=== PATIENT | female | born 1965 | race Caucasian/White ===

== ENCOUNTER 2018-05-15 22:18 | Inpatient (IN) | payer SELFPAY ==
[~2018-05-15] VITALS: Ht 152.4 cm; Wt 62.7 kg
--- OUTSIDE RECORDS SUMMARY | 2018-05-15 22:24 | XMS REPORT ---
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 [id number] [place] [address] 61518- 9129 Apr, [facility] [id number] [place] [address] 59128- 2855 Mar, [facility] [id number] [place] [address] 58845- 7233 Mar, [facility] [id number] [place] [address] 33684- 2373 Mar, [facility] [id number] [place] [address] 22583- 1029 Mar, [facility] [id number] [place] [address] 17547- 2986 Feb, [facility] [id number] [place] [address] 09916- 0441 Feb, High risk medication use Z79.899 [facility] [id number] [place] [address] 65800- 6665 Feb, [facility] [id number] [address] 5[address] Feb, [facility] [id number] [address] 6786 Feb, [facility] [address] [address] 6[address] Jan, 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.01 IMMUNIZATIONS No Known Immunizations SOCIAL HISTORY Never Assessed REASON FOR VISIT Medication refill request PLAN OF CARE VITAL SIGNS MEDICATIONS Unknown Medications RESULTS No Results PROCEDURES No Known procedures INSTRUCTIONS MEDICATIONS ADMINISTERED No Known Medications MEDICAL (GENERAL) HISTORY Type Description Date Medical History PAD (peripheral artery disease) Medical History Type 2 diabetes mellitus without complication, without long- term current use of insulin Medical History Depression, unspecified depression type Medical History Muscle spasm Medical History Anxiety Medical History Hypercholesteremia Medical History Hypertension, unspecified type Medical History Low iron Medical History DDD (degenerative disc disease), 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
--- OUTSIDE RECORDS SUMMARY | 2018-05-15 22:24 | XMS REPORT ---
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.01 Active 292419563 Problem Type 2 diabetes mellitus with complication, without long-term current use of insulin E11.8 Active 32898061 ALLERGIES No Information ENCOUNTERS Encounter Location Date Diagnosis [facility] [id number] [place] [address] 02823- 9534 Apr, [facility] [id number] [place] [address] 64476- 5877 Apr, [facility] [id number] [place] [address] 30911- 1543 Apr, [facility] [id number] [place] [address] 29345- 2871 Apr, Prediabetes R73.03 [facility] [id number] [place] [address] 77661- 5024 Mar, [facility] [id number] [place] [address] 88549- 3256 Mar, [facility] [id number] [place] [address] 13834- 7152 Mar, [facility] [id number] [place] [address] 74509- 8498 Mar, [facility] [address] [place] [address]- 7925 Feb, [place] [id number] [place] [address] 30066- 5554 Feb, High risk medication use Z79.899 [place] [address] [place] [address] 49109- 6010 Feb, [place] [id number] [place] [address] 39860- 4455 Feb, [place] [id number] [place] [address] 84188- 3236 Feb, [place] [id number] [place] [address] 72469- 9382 Jan, [place] [id number] [place] [address] 68344- 0419 Jan, Dysthymia F34.1 ; Anxiety disorder, unspecified type F41.9 and Primary insomnia F51.01 [place] [id number] [place] [address] 97555- 8107 Jan, High risk medication use Z79.899 [place] [address] [place] [address] 96053- 2404 Dec, Prediabetes R73.03 ; Dysthymia F34.1 ; Hordeolum externum of right upper eyelid H00.011 and [facility] current use of anticoagulant Z79.01 IMMUNIZATIONS No Known Immunizations SOCIAL HISTORY Never Assessed REASON FOR VISIT Medication refill request PLAN OF CARE VITAL SIGNS MEDICATIONS Medication Instructions Dosage Frequency Start Date End Date Duration Status MetFORMIN HCl ER (MOD) 500 mg Orally Once a day 1 tablet with evening meal 24h Dec, 30 days Active RESULTS No Results PROCEDURES No Known procedures [...] 2007 Surgical History LT leg- Arterial bypass 2004 Hospitalization History ICU- complications from hernia repair surgery 2016 Hospitalization History surgeries Hospitalization History childbirth
--- OUTSIDE RECORDS SUMMARY | 2018-05-15 22:24 | XMS REPORT ---
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 Active 268622530 Problem Type 2 diabetes mellitus with complication, without long-term current use of insulin E11.8 Active 01445437 ALLERGIES No Information ENCOUNTERS Encounter Location Date Diagnosis [place] [id number] [place] [address] 45234- 2219 Feb, High risk medication use Z79.899 [facility] [id number] [place] [address] 18497- 4000 Feb, [place] [id number] [place] [address] 82837- 5507 Feb, [place] [id number] [place] [address] 82105- 2388 Feb, [facility] [id number] [place] [address] 62154- 8553 Jan, [facility] [id number] [place] [address] 93027- 4760 Jan, Dysthymia F34.1 ; Anxiety disorder, unspecified type F41.9 and Primary insomnia F51.01 [facility] [id number] [place] [address] 89558- 3360 Jan, High risk medication use Z79.899 [place] [address] [address]- 2609 Dec, Prediabetes R73.03 ; Dysthymia F34.1 ; Hordeolum externum of right upper eyelid H00.011 and exterminator helper current use of anticoagulant Z79.01 IMMUNIZATIONS No Known Immunizations SOCIAL HISTORY Never Assessed REASON FOR VISIT Lab (walk-in) PLAN OF CARE Activity Details Pending Test PT/INR Pending Test PDM - 06 PANEL (PROFILE 3) VITAL SIGNS MEDICATIONS Unknown Medications RESULTS No Results PROCEDURES Procedure Date Ordered Result Body Site DRUG TEST PRSMV CHEM ANLYZR Mar 10, 2018 PROTHROMBIN TIME Mar 10, 2018 VENIPUNCT, ROUTINE* Mar 10, 2018 INSTRUCTIONS MEDICATIONS ADMINISTERED No Known Medications MEDICAL [...]
--- OUTSIDE RECORDS SUMMARY | 2018-05-15 22:24 | XMS REPORT ---
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 Active 390700496 Problem Type 2 diabetes mellitus with complication, without long-term current use of insulin E11.8 Active 55926342 ALLERGIES No Information ENCOUNTERS Encounter Location Date Diagnosis [facility] [id number] [place] [address] 30228- 8874 Apr, [facility] [id number] [place] [address] 38304- 0030 Apr, [facility] [id number] [place] [address] 98143- 4326 Apr, [facility] [id number] [place] [address] 81083- 5807 Apr, Prediabetes R73.03 [facility] [id number] [place] [address] 09855- 5422 Mar, [facility] [id number] [place] [address] 32585- 2191 Mar, [facility] [id number] [place] [address] 91419- 7426 Mar, [facility] [id number] [place] [address] 96743- 1021 Mar, [facility] [address], [place] [address]- 2909 Feb, [place] [address] [place] [address] 63978- 9471 Feb, High risk medication use Z79.899 [place] [address] [place] [address] 79878- 1938 Feb, [place] [id number] [place] [address] 18203- 2271 Feb, [place] [id number] [place] [address] 12778- 5275 Feb, [place] [id number] [place] [address] 84133- 3475 Jan, [place] [id number] [place] [address] 27645- 9311 Jan, Dysthymia F34.1 ; Anxiety disorder, unspecified type F41.9 and Primary insomnia F51.01 [place] [address] [place] [address] 71911- 3051 Jan, High risk medication use Z79.899 [place] [address] [place] [address] 90625- 2737 Dec, Prediabetes R73.03 ; Dysthymia F34.1 ; Hordeolum externum of right upper eyelid H00.011 and intermediate current use of anticoagulant Z79.01 IMMUNIZATIONS No Known Immunizations SOCIAL HISTORY Never Assessed REASON FOR VISIT xanax taper PLAN OF CARE VITAL SIGNS MEDICATIONS Medication Instructions Dosage Frequency Start Date End Date Duration Status Xanax 0.25 MG Orally Once a day for two weeks, then stop. Tapering out. 1 tablet Mar, 14 days Active RESULTS No Results PROCEDURES No [...]
--- OUTSIDE RECORDS SUMMARY | 2018-05-15 22:24 | XMS REPORT ---
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.01 Active 270498781 Problem Type 2 diabetes mellitus with complication, without long-term current use of insulin E11.8 Active 25044149 ALLERGIES No Information ENCOUNTERS Encounter Location Date Diagnosis [place] [address] 50869- 5401 Feb, [facility] [address] 27900- 9104 Feb, [place] [address] 10014- 5902 Feb, [place] [id number] [place] [address] 28767- 1320 Jan, [place] [address] 91752- 7379 Jan, Dysthymia F34.1 ; Anxiety disorder, unspecified type F41.9 and Primary insomnia F51.01 [facility] [address] 66495- 0391 Jan, High risk medication use Z79.899 [facility] [id number] [place] [address] 50341- 4103 Dec, Prediabetes R73.03 ; Dysthymia F34.1 ; Hordeolum externum of right upper eyelid H00.011 and intermediate teacher current use of anticoagulant Z79.01 IMMUNIZATIONS No Known Immunizations SOCIAL HISTORY Never Assessed REASON FOR VISIT VMB not set up PLAN OF CARE VITAL SIGNS MEDICATIONS Medication Instructions Dosage Frequency Start Date End Date Duration Status Alprazolam 0.5 MG Orally Once a day as needed 1 tablet Active Ferrous Sulfate 325 (65 Fe) MG Orally Once a day 1 tablet 24h Active RESULTS No Results PROCEDURES No Known [...]
--- OUTSIDE RECORDS SUMMARY | 2018-05-15 22:24 | XMS REPORT ---
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 Active 885097095 Problem Type 2 diabetes mellitus with complication, without long-term current use of insulin E11.8 Active 29971319 ALLERGIES No Information ENCOUNTERS Encounter Location Date Diagnosis [facility] [address] 40015- 8300 Mar, [facility] [id number] [place] [address] 37987- 5594 Mar, [facility] [address] 02430- 4601 Mar, [facility] [id number] [place] [address] 43368- 6012 Feb, [facility] [id number] [place] [address] 03121- 5305 Feb, High risk medication use Z79.899 [facility] [address] 97356- 7403 Feb, [facility] [address] 38142- 5851 Feb, [facility] [id number] [place] [address] 53811- 5100 Feb, [facility] [address] [facility] [id number] [address]- 6181 Jan, [place] [id number] [address]- 8275 Jan, Dysthymia F34.1 ; Anxiety disorder, unspecified type F41.9 and Primary insomnia F51.01 [place] [id number] [address]- 8556 Jan, High risk medication use Z79.899 [place] [id number] [address]- 6794 Dec, Prediabetes R73.03 ; Dysthymia F34.1 ; Hordeolum externum of right upper eyelid H00.011 and senior living current use of anticoagulant Z79.01 IMMUNIZATIONS No Known Immunizations SOCIAL HISTORY Never Assessed REASON FOR VISIT CONTROLLED CONTRACT VIOLATION PLAN OF CARE VITAL SIGNS MEDICATIONS Medication [...]
--- OUTSIDE RECORDS SUMMARY | 2018-05-15 22:24 | XMS REPORT ---
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 Active 470092758 Problem Type 2 diabetes mellitus with complication, without long-term current use of insulin E11.8 Active 61193539 ALLERGIES No Information ENCOUNTERS Encounter Location Date Diagnosis [place] [id number] [place] [address] 47663- 0628 Feb, [facility] [id number] [place] [address] 62743- 2838 Feb, High risk medication use Z79.899 [place] [id number] [place] [address] 20446- 6119 Feb, [place] [id number] [place] [address] 13566- 7137 Feb, [facility] [id number] [place] [address] 68853- 9105 Feb, [facility] [id number] [place] [address] 17403- 1439 Jan, [place] [id number] [place] [address] 42237- 1443 Jan, Dysthymia F34.1 ; Anxiety disorder, unspecified type F41.9 and Primary insomnia F51.01 [facility] [id number] [place] [address] 63581- 9943 Jan, High risk medication use Z79.899 [facility] [address] [facility] [id number] [place] [address]- 1462 Dec, Prediabetes R73.03 ; Dysthymia F34.1 ; Hordeolum externum of right upper eyelid H00.011 and 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
--- OUTSIDE RECORDS SUMMARY | 2018-05-15 22:24 | XMS REPORT ---
Author Author KING JAREK 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.01 Active 100897513 Problem Type 2 diabetes mellitus with complication, without long-term current use of insulin E11.8 Active 38706765 ALLERGIES No Information ENCOUNTERS Encounter Location Date Diagnosis [place] [address] 02136- 6950 Feb, [facility] [address] 85515- 2427 Feb, [place] [address] 37440- 2286 Feb, [place] [address] [place] [address] [id number] [place] [address] 92414- 9148 Jan, [place] [address] 20524- 9028 Jan, Dysthymia F34.1 ; Anxiety disorder, unspecified type F41.9 and Primary insomnia F51.01 [facility] [address] 11345- 5399 Jan, High risk medication use Z79.899 [facility] [id number] [place] [address] 31732- 5030 Dec, Prediabetes R73.03 ; Dysthymia F34.1 ; Hordeolum externum of right upper eyelid H00.011 and public area supervisor current use of anticoagulant Z79.01 IMMUNIZATIONS No Known Immunizations SOCIAL HISTORY Never Assessed REASON FOR VISIT referral PLAN OF CARE VITAL SIGNS MEDICATIONS Unknown [...]
--- OUTSIDE RECORDS SUMMARY | 2018-05-15 22:24 | XMS REPORT ---
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 Active 478452166 Problem Type 2 diabetes mellitus with complication, without long-term current use of insulin E11.8 Active 35151888 ALLERGIES No Information ENCOUNTERS Encounter Location Date Diagnosis [place] [id number] [place] [address] 14998- 3418 Mar, [facility] [id number] [place] [address] 69320- 3206 Feb, [place] [id number] [place] [address] 04159- 4012 Feb, High risk medication use Z79.899 [facility] [id number] [place] [address] 13991- 8792 Feb, [facility] [id number] [place] [address] 00961- 7381 Feb, [facility] [id number] [place] [address] 86762- 4775 Feb, [facility] [id number] [place] [address] 60231- 6205 Jan, [facility] [id number] [place] [address] 26418- 1202 Jan, Dysthymia F34.1 ; Anxiety disorder, unspecified type F41.9 and Primary insomnia F51.01 [facility] [address] [facility] [id number] [place] [address]- 9448 Jan, High risk medication use Z79.899 [facility] [address] [facility] [id number] [place] [address]- 9218 Dec, Prediabetes R73.03 ; Dysthymia F34.1 ; Hordeolum externum of right upper eyelid H00.011 and alf current use of anticoagulant Z79.01 IMMUNIZATIONS No Known Immunizations SOCIAL HISTORY Never Assessed REASON FOR VISIT Refill request PLAN OF CARE VITAL SIGNS MEDICATIONS Medication Instructions Dosage Frequency Start Date End Date Duration Status Alprazolam 0.5 MG Orally Once a day as needed 1 tablet 30 days Active Atenolol 25 MG Orally 2 times a day 1 tablet 12h Active RESULTS No Results PROCEDURES No Known [...]
--- OUTSIDE RECORDS SUMMARY | 2018-05-15 22:24 | XMS REPORT ---
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.01 Active 634208582 Problem Type 2 diabetes mellitus with complication, without long-term current use of insulin E11.8 Active 01098773 ALLERGIES No Information ENCOUNTERS Encounter Location Date Diagnosis [facility] [place] [id number] [place] [phone] Mar, [facility] [place] [id number] [place] [address]- 7645 Mar, [facility] [place] [id number] [place] [address] 0[address] Mar, [facility] [place] [id number] [address] Feb, [facility] [place] [id number] [place] [address]- 8974 Feb, High risk medication use Z79.899 [facility] [place] [id number] [place] [address] 9[address]- 56[address] Feb, [facility] [place] [id number] [place] [address] 72[address]- 0[address] Feb, [facility] [place] [id number] [place] [address] 25694- 2665 Feb, [facility] [place] [id number] [address] Jan, [facility] [place] [address] [facility] [id number] [address] Jan, Dysthymia F34.1 ; Anxiety disorder, unspecified type F41.9 and Primary insomnia F51.01 [place] [address] [facility] [id number] [address] Jan, High risk medication use Z79.899 [place] [address] [id number] [address] Dec, Prediabetes R73.03 ; Dysthymia F34.1 ; Hordeolum externum of right upper eyelid H00.011 and 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
--- OUTSIDE RECORDS SUMMARY | 2018-05-15 22:25 | XMS REPORT | Continuity of Care Document ---
Author Author [facility] Organization [facility] Address Unknown Phone Unavailable Allergies Active Description Code Type Severity Reaction Onset Reported/Identified Relationship to Patient Clinical Status Yes Demerol HCl Drug N/A N/A Medications There is no data. Problems Date Dx Coded Attending Type Code Diagnosis Diagnosed By 01/05/2015 Final V58.61 Long- term (current) use of anticoagulants. Procedures There is no data. Results Test Result Range A1C - 01/14/18 10:54 HEMOGLOBIN A1c 5.4 % of total Hgb <5.7 PDM - PAIN MGMT (PROFILE 3 WITH CONFIRMATION) - 03/10/18 12:50 Creatinine 58.4 mg/dL > or=20.0 pH 6.59 4.5 - 9.0 Oxidant NEGATIVE mcg/mL <200 Amphetamines NEGATIVE ng/mL <500 medMATCH Amphetamines CONSISTENT NRG Benzodiazepines POSITIVE ng/mL <100 Marijuana Metabolite NEGATIVE ng/mL <20 medMATCH Marijuana Metab CONSISTENT NRG Cocaine Metabolite NEGATIVE ng/mL <150 medMATCH Cocaine Metab CONSISTENT NRG Opiates POSITIVE ng/mL <100 Oxycodone NEGATIVE ng/mL <100 medMATCH Oxycodone CONSISTENT NRG COMMENT NRG Alphahydroxyalprazolam 60 ng/mL <25 medMATCH aOH alprazolam INCONSISTENT NRG Alphahydroxymidazolam NEGATIVE ng/mL <50 medMATCH aOH midazolam CONSISTENT NRG Alphahydroxytriazolam NEGATIVE ng/mL <50 medMATCH aOH triazolam CONSISTENT NRG Aminoclonazepam NEGATIVE ng/mL <25 medMATCH Aminoclonazepam CONSISTENT NRG Hydroxyethylflurazepam NEGATIVE ng/mL <50 medMATCH OH,Et flurazepam CONSISTENT NRG Lorazepam NEGATIVE ng/mL <50 medMATCH Lorazepam CONSISTENT NRG Nordiazepam NEGATIVE ng/mL <50 medMATCH Nordiazepam CONSISTENT NRG Oxazepam NEGATIVE ng/mL <50 medMATCH Oxazepam CONSISTENT NRG Temazepam NEGATIVE ng/mL <50 medMATCH Temazepam CONSISTENT NRG Codeine NEGATIVE ng/mL <50 medMATCH Codeine CONSISTENT NRG Hydrocodone 75 ng/mL <50 medMATCH Hydrocodone INCONSISTENT NRG Hydromorphone NEGATIVE ng/mL <50 medMATCH Hydromorphone CONSISTENT NRG Morphine NEGATIVE ng/mL <50 medMATCH Morphine CONSISTENT NRG Norhydrocodone 132 ng/mL <50 medMATCH Norhydrocodone INCONSISTENT NRG Encounters ACCT No. Visit Date/Time Discharge Status Pt. Type Provider Facility Loc./Unit Complaint [id number] 01/05/2015 09:04:00 01/05/2015 23:59:00 DIS Outpatient Guarantor/person LAB LAB WORK [id number] 01/06/2015 03:48:33 ACT Document Registration [id number] 05/05/2018 12:20:00 05/05/2018 23:59:59 [facility] Outpatient JAREK BOWLES [facility] [id number] 03/10/2018 12:20:00 Document Registration [id number] 01/14/2018 10:00:00 Document Registration
--- OUTSIDE RECORDS SUMMARY | 2018-05-15 22:25 | XMS REPORT ---
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.01 Active 311942524 Problem Type 2 diabetes mellitus with complication, without long-term current use of insulin E11.8 Active 61542192 ALLERGIES No Information ENCOUNTERS Encounter Location Date Diagnosis [place] [id number] [place] [address]- [address]10 Feb, [place] [id number] [place] [address]- 3511 Jan, [place] [id number] [place] [address] 14062- 5452 Jan, Dysthymia F34.1 ; Anxiety disorder, unspecified type F41.9 and Primary insomnia F51.01 [place] [id number] [place] [address] 87894- 8307 Jan, High risk medication use Z79.899 [place] [id number] [place] [address] 91575- 1932 Dec, Prediabetes R73.03 ; Dysthymia F34.1 ; Hordeolum externum of right upper eyelid H00.011 and longterm current use of anticoagulant Z79.01 IMMUNIZATIONS No Known Immunizations SOCIAL HISTORY Never Assessed REASON FOR VISIT Refill request PLAN OF CARE VITAL SIGNS MEDICATIONS Medication Instructions Dosage Frequency Start Date End Date Duration Status Omeprazole 40 mg Orally Once a day 1 capsule 24h 05 Jan, 2018 30 day(s ) Active Alprazolam 0.5 MG Orally 2 times a day 1 tablet 12h 28 days Active Clopidogrel Bisulfate 75 MG Orally Once a day 1 tablet 24h Active Simvastatin 20 mg Orally at bedtime 1 tablet Active RESULTS No Results PROCEDURES No Known [...]
--- OUTSIDE RECORDS SUMMARY | 2018-05-15 22:25 | XMS REPORT ---
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.01 Active 583181698 Problem Type 2 diabetes mellitus with complication, without long-term current use of insulin E11.8 Active 86996206 ALLERGIES No Information ENCOUNTERS Encounter Location Date Diagnosis [place] [address] [address] Feb, [facility] [address] [address] Feb, [place] [address] [address]- [address] Feb, [place] [address] [place] [id number] [place] [address]- 3178 Jan, [place] [address] [address]- [address] Jan, Dysthymia F34.1 ; Anxiety disorder, unspecified type F41.9 and Primary insomnia F51.01 [facility] [address] [address]- [address]237 Jan, High risk medication use Z79.899 [facility] [id number] [place] [address] 66744- 2058 Dec, Prediabetes R73.03 ; Dysthymia F34.1 ; Hordeolum externum of right upper eyelid H00.011 and exterminator helper current use of anticoagulant Z79.01 IMMUNIZATIONS No Known Immunizations SOCIAL HISTORY Never Assessed REASON FOR VISIT Refill request PLAN OF CARE VITAL SIGNS MEDICATIONS Medication Instructions Dosage Frequency Start Date End Date Duration Status Atenolol 25 MG Orally 2 times a day 1 tablet 12h Active Cyclobenzaprine HCl 10 mg Orally 2 times a day 1 tablet 12h Active Cilostazol 100 mg Orally 2 times a day 1 tablet [...]
--- OUTSIDE RECORDS SUMMARY | 2018-05-15 22:25 | XMS REPORT ---
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 Active 938397740 Problem Type 2 diabetes mellitus with complication, without long-term current use of insulin E11.8 Active 36754420 ALLERGIES Substance Reaction Event Type Date Status Demerol vomiting Drug Allergy Jan, Active ENCOUNTERS Encounter Location Date Diagnosis [facility] [place] [id number] [place] [address]150- 5699 Feb, [facility] [place] [address] [address]- [address] Feb, [facility] [place] [id number] [place] [address] 52412- 9551 Feb, [facility] [place] [id number] [place] [address] 27329- 8050 Jan, [facility] [place] [id number] [place] [address] 66533- 9698 Jan, Dysthymia F34.1 ; Anxiety disorder, unspecified type F41.9 and Primary insomnia F51.01 [facility] [place] [id number] [place] [address] 78212- 6831 Jan, High risk medication use Z79.899 [facility] [place] [address] [address]- [address] Dec, Prediabetes R73.03 ; Dysthymia F34.1 ; Hordeolum externum of right upper eyelid H00.011 and senior living current use of anticoagulant Z79.01 IMMUNIZATIONS No Known Immunizations SOCIAL HISTORY Never Assessed REASON FOR VISIT intake PLAN OF CARE Activity Details Follow Up 4 Weeks Reason: f/u VITAL SIGNS Height 62 in 2018-01-28 Weight 138.1 lbs 2018-01-28 Heart Rate 108 bpm 2018-01-28 Respiratory Rate 20 2018-01-28 BMI 25.26 kg/m2 2018-01-28 Blood pressure systolic 114 mmHg 2018-01-28 Blood pressure diastolic 62 mmHg 2018-01-28 MEDICATIONS Medication Instructions Dosage Frequency Start Date End Date Duration Status Cyclobenzaprine HCl 10 MG Orally 2 times a day 1 tablet 12h Active ibuprofen 800 Oral every 12 hours with food as needed for mild pain 1 tablet Active Cilostazol 100 MG Orally 2 times a day 1 tablet 12h Active Clopidogrel Bisulfate 75 MG Orally Once a day 1 tablet 24h Active Sertraline HCl 50 mg Orally Once a day 1 tablet 24h Active Simvastatin 20 mg Orally at bedtime 1 tablet Active Warfarin Sodium 5 MG Orally Once daily as directed by Dr. Azar 1-2 tablet Active Atenolol 25 MG Orally 2 times a day 1 tablet 12h Active Ferrous Sulfate 325 (65 Fe) MG Orally Once a day 1 tablet 24h Active Amitriptyline HCl 25 MG Orally Once a day at bedtime 1 tablet 12 Jan, 2018 30 day(s) Active MetFORMIN HCl ER (MOD) 500 mg Orally Once a day 1 tablet with evening meal 24h Dec, 90 days Active Omeprazole 40 mg Orally Once a day 1 capsule 24h Jan, 30 day(s ) Active Alprazolam 0.5 MG Orally Once a day as needed 1 tablet 30 days Active RESULTS No Results PROCEDURES [...]
--- OUTSIDE RECORDS SUMMARY | 2018-05-15 22:25 | XMS REPORT ---
Author Author KING JAREK 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 Z79.01 Active 744322425 Problem Type 2 diabetes mellitus with complication, without long-term current use of insulin E11.8 Active 73853709 ALLERGIES Substance Reaction Event Type Date Status Demerol vomiting Drug Allergy Dec, Active ENCOUNTERS Encounter Location Date Diagnosis [place] [id number] [place] [address] 89378- 8880 Feb, [place] [address] [address] Jan, [place] [address] [address]- [address] Jan, Dysthymia F34.1 ; Anxiety disorder, unspecified type F41.9 and Primary insomnia F51.01 [facility] [id number] [place] [address] 87613- 7305 Jan, High risk medication use Z79.899 [facility] [id number] [place] [address] 32173- 5879 Dec, Prediabetes R73.03 ; Dysthymia F34.1 ; Hordeolum externum of right upper eyelid H00.011 and halfway current use of anticoagulant Z79.01 IMMUNIZATIONS No Known Immunizations SOCIAL HISTORY Never Assessed REASON FOR VISIT Establish Cathy Nina MA, LT eye swelling and itching that started yesterday. CHAD Morgan PLAN OF CARE Activity Details Follow Up 3 months or as indicated by lab Reason: VITAL SIGNS Height 62 in 2018-01-14 Weight 137.5 lbs 2018-01-14 Temperature 97.9 degrees Fahrenheit 2018-01-14 Heart Rate 120 bpm 2018-01-14 Respiratory Rate 18 2018-01-14 Oximetry 97 % 2018-01-14 BMI 25.15 kg/m2 2018-01-14 Blood pressure systolic 144 mmHg 2018-01-14 Blood pressure diastolic 72 mmHg 2018-01-14 MEDICATIONS Medication Instructions Dosage Frequency Start Date End Date Duration Status Simvastatin 20 MG Orally at bedtime 1 tablet Active Atenolol 25 MG Orally 2 times a day 1 tablet 12h Active Alprazolam 0.5 MG Orally 3 times a day 1 tablet 8h Active Ferrous Sulfate 325 (65 Fe) MG Orally Once a day 1 tablet 24h Active Warfarin Sodium 5 MG Orally Once daily as directed by Dr. Azar 1-2 tablet Active ibuprofen 800 Oral every 12 hours with food as needed for mild pain 1 tablet Active Clopidogrel Bisulfate 75 MG Orally Once a day 1 tablet 24h Active Cyclobenzaprine HCl 10 MG Orally 2 times a day 1 tablet 12h Active Sertraline HCl 50 mg Orally Once a day 1 tablet 24h 30 days Active Cilostazol 100 MG Orally 2 times a day 1 tablet 12h Active Erythromycin 5 MG/GM Ophthalmic Four times a day 1 application 6h Dec, 8 Jan, 2018 10 day(s) Active MetFORMIN HCl ER (MOD) 500 mg Orally Once a day 1 tablet with evening meal 24h Dec, 90 days Active RESULTS No Results PROCEDURES Procedure Date Ordered Result Body Site COMPREHEN METABOLIC PANEL Jan 14, 2018 Hemoglobin Test Send Out 0 dollar Jan 14, 2018 VENIPUNCT, ROUTINE* Jan 14, 2018 PROTHROMBIN TIME Jan 14, 2018 INSTRUCTIONS MEDICATIONS ADMINISTERED No Known Medications [...]
--- NOTE | 2018-05-15 22:43 | ED GU-Female ---
General Stated Complaint: VAGINAL ITCHING/SWELLING Source: patient, family (daughter) Exam Limitations: no limitations History of Present Illness Date Seen by Provider: May 15, 2018 Time Seen by Provider: 22:34 Initial Comments Patient presents to ER by private conveyance with chief complaint for one week now she's had progressively worsening itching in her genitalia. She denies any discharge, abscess, purulence. She's tried monkey but paced, so mother baby skin creams and some leftover nystatin from a baby's skin rash. She has not tried Monistat, clotrimazole etc. She tried antibacterial ointment. She tried sitz baths. She's had no fevers chills nausea vomiting. She's had her hysterectomy secondary to a polyp on her ovary years ago. Last sexual intercourse was 7 years ago. She denies a history of STI's. Allergies and Home Medications Allergies Coded Allergies: meperidine (Verified Allergy, Unknown, 05/15/18) Patient Home Medication List Home Medication List Reviewed: Yes Review of Systems Review of Systems Constitutional: No chills, No fever EENTM: No hearing loss, No ear pain Respiratory: No cough, No short of breath Cardiovascular: No chest pain, No edema Gastrointestinal: No abdominal pain, No constipation, No diarrhea, No nausea Genitourinary: denies discharge, denies dysuria : No Musculoskeletal: No back pain, No joint pain Skin: see HPI Past Skyrtvw-Cjgmgo-Djsuka Hx Patient Social History Alcohol Use: Denies Use Recreational Drug Use: No Smoking Status: Never a Smoker Recent Foreign Travel: No Contact w/Someone Who Travel: No Physical Exam Vital Signs Vital Signs - First Documented 05/15/18 22:33 Temp 96.9 Pulse 98 Resp 20 B/P (MAP) 125/79 (94) Pulse Ox 98 O2 Delivery Room Air Capillary Refill : Height, Weight, BMI Height: '" Weight: lbs. oz. kg; BMI Method: General Appearance: WD/WN, mild distress HEENT: PERRL/EOMI, pharynx normal Cardiovascular: normal peripheral pulses, regular rate, rhythm Respiratory: no respiratory distress, no accessory muscle use Gastrointestinal: non tender, soft Pelvic: other (external old that is erythematous, edematous, pruritic without any lesions. There is a scant white purulent discharge noted at the extremities. The vagina is erythematous and tender and with a thin yellow-green serous discharge) Extremities: normal inspection, normal capillary refill Neurologic/Psychiatric: alert, normal mood/affect, oriented x 3 Focused Exam Lactate Level 05/15/18 23:25: Lactic Acid Level 1.47 Lactic Acid Level Laboratory Tests Test 05/15/18 23:25 Lactic Acid Level 1.47 MMOL/L (0.50-2.00) Progress/Results/Core Measures Suspected Sepsis SIRS Temperature: Pulse: Respiratory Rate: Laboratory Tests 05/15/18 23:15: White Blood Count 26.5H Blood Pressure / Mean: 05/15/18 23:25: Lactic Acid Level 1.47 Laboratory Tests 05/15/18 23:15: Creatinine 0.75, INR Comment 1.9H, Platelet Count 512H, Total Bilirubin 0.2 Results/Orders Lab Results Laboratory Tests Test 05/15/18 22:55 05/15/18 23:15 05/15/18 23:25 05/15/18 23:35 Range/Units White Blood Count 26.5 H 4.3-11.0 10^3/uL Red Blood Count 4.71 4.35-5.85 10^6/uL Hemoglobin 14.0 11.5-16.0 G/DL Hematocrit 41 35-52 % Mean Corpuscular Volume 88 80-99 FL Mean Corpuscular Hemoglobin 30 25-34 PG Mean Corpuscular Hemoglobin Concent 34 32-36 G/DL Red Cell Distribution Width 14.7 H 10.0-14.5 % Platelet Count 512 H 130-400 10^3/uL Mean Platelet Volume 9.4 7.4-10.4 FL Neutrophils (%) (Auto) 75 42-75 % Lymphocytes (%) (Auto) 14 12-44 % Monocytes (%) (Auto) 9 0-12 % Eosinophils (%) (Auto) 2 0-10 % Basophils (%) (Auto) 0 0-10 % Neutrophils # (Auto) 19.8 H 1.8-7.8 X 10^3 Lymphocytes # (Auto) 3.7 1.0-4.0 X 10^3 Monocytes # (Auto) 2.3 H 0.0-1.0 X 10^3 Eosinophils # (Auto) 0.6 H 0.0-0.3 10^3/uL Basophils # (Auto) 0.1 0.0-0.1 10^3/uL Neutrophils % (Manual) 77 % Lymphocytes % (Manual) 13 % Monocytes % (Manual) 6 % Eosinophils % (Manual) 2 % Band Neutrophils 2 % Blood Morphology Comment NORMAL Prothrombin Time 22.2 H 12.2-14.7 SEC INR Comment 1.9 H 0.8-1.4 Activated Partial Thromboplast Time 43 H 24-35 SEC Sodium Level 140 135-145 MMOL/L Potassium Level 3.5 L 3.6-5.0 MMOL/L Chloride Level 105 98-107 MMOL/L Carbon Dioxide Level 21 21-32 MMOL/L Anion Gap 14 5-14 MMOL/L Blood Urea Nitrogen 11 7-18 MG/DL Creatinine 0.75 0.60-1.30 MG/DL Estimat Glomerular Filtration Rate > 60 BUN/Creatinine Ratio 15 Glucose Level 122 H 70-105 MG/DL Calcium Level 9.3 8.5-10.1 MG/DL Corrected Calcium 9.1 8.5-10.1 MG/DL Total Bilirubin 0.2 0.1-1.0 MG/DL Aspartate Amino Transf (AST/SGOT) 14 5-34 U/L Alanine Aminotransferase (ALT/SGPT) 11 0-55 U/L Alkaline Phosphatase 76 40-136 U/L Total Protein 7.2 6.4-8.2 GM/DL Albumin 4.2 3.2-4.5 GM/DL Lactic Acid Level 1.47 0.50-2.00 MMOL/L Urine Color YELLOW Urine Clarity SLIGHTLY CLOUDY Urine pH 5 5-9 Urine Specific Yoder 1.015 L 1.016-1.022 Urine Protein 1+ H NEGATIVE Urine Glucose (UA) NEGATIVE NEGATIVE Urine Ketones NEGATIVE NEGATIVE Urine Nitrite NEGATIVE NEGATIVE Urine Bilirubin NEGATIVE NEGATIVE Urine Urobilinogen NORMAL NORMAL MG/DL Urine Leukocyte Esterase 3+ H NEGATIVE Urine RBC (Auto) 3+ H NEGATIVE Urine RBC 10-25 H /HPF Urine WBC 50-100 H /HPF Urine Squamous Epithelial Cells 5-10 /HPF Urine Crystals NONE /LPF Urine Bacteria MODERATE H /HPF Urine Casts NONE /LPF Urine Mucus MODERATE H /LPF Urine Culture Indicated NO My Orders Orders - SAVANNAH SPRING Ua Culture If Indicated (05/15/18 22:34) Urine Bedside (05/15/18 22:34) Neisseria Gonorrhea Swab (05/15/18 22:38) Chlamydia Trachomatis Swab (05/15/18 22:38) Wet Prep (05/15/18 22:38) Hydroxyzine Oral (Vistaril Capsule) (05/15/18 23:00) Hydrocodone/Apap 5/325 Tablet (Lortab 5 (05/15/18 23:00) Cbc With Automated Diff (05/15/18 23:13) Comprehensive Metabolic Panel (05/15/18 23:13) Blood Culture (05/15/18 23:13) Urine Culture (05/15/18 23:13) Protime With Inr (05/15/18 23:13) Partial Thromboplastin Time (05/15/18 23:13) Saline Lock/Iv-Start (05/15/18 23:13) Remove Rings In Anticipation O (05/15/18 23:13) Lactic Acid Analyzer (05/15/18 23:13) Ns Iv 1000 Ml (Sodium Chloride 0.9%) (05/15/18 23:13) Cefazolin Injection (Ancef Injection) (05/15/18 23:15) Manual Differential (05/15/18 23:15) Medications Given in ED Current Medications Medications Dose Ordered Sig/Jan Route Start Time Stop Time Status Last Admin Dose Admin Acetaminophen/ Hydrocodone Bitart 1 tab ONCE ONCE PO 05/15/18 23:00 05/15/18 23:02 DC 05/15/18 23:19 1 TAB Cefazolin Sodium 1000 mg/Sodium Chloride 60 ml @ 100 mls/hr ONCE ONCE IV 05/15/18 23:15 05/15/18 23:50 DC 05/16/18 00:07 100 MLS/HR Hydroxyzine Pamoate 25 mg ONCE ONCE PO 05/15/18 23:00 05/15/18 23:02 DC 05/15/18 23:20 25 MG Vital Signs/I&O 05/15/18 22:33 Temp 96.9 Pulse 98 Resp 20 B/P (MAP) 125/79 (94) Pulse Ox 98 O2 Delivery Room Air Capillary Refill : Progress Note #1: Time: 23:05 Progress Note For her pain we'll give her some Leckrone for her itching we'll give her some Vistaril and ranitidine. It does appear that she has a yeast infection. Probably require antifungal pills however we'll see what the results of the wet prep showed. We'll also send off for a GC and chlamydia. Progress Note #2: Time: 23:19 Progress Note Wet prep shows nothing but multiple white blood cells. This makes this more likely just to be a cellulitis without Yeast component. Put her on Cefzil and probably with vancomycin observation and since she is tachycardic we will initiate a septic workup. Departure Communication (Admissions) Time/Spoke to Admitting Phy: 00:10 Discussed case lab imaging findings and plan with Dr. Buchanan and he agrees to accept the patient. Impression Primary Impression: Vulval cellulitis Additional Impressions: UTI (urinary tract infection) Qualified Codes: N30.01 - Acute cystitis with hematuria Sepsis Qualified Codes: A41.9 - Sepsis, unspecified organism Disposition: ADMITTED INPATIENT Condition: Stable Admissions Decision to Admit Reason: Admit from ER (General) Decision to Admit/Date: May 16, 2018 Time/Decision to Admit Time: 00:13 Departure-Patient Inst. Referrals: NO,LOCAL PHYSICIAN (PCP/Family) Primary Care Physician SAVANNAH SPRING May 15, 2018 22:43
[2018-05-15] MEDS ORDERED: HYDROcodone/APAP 5 MG/325 MG (LORTAB) TAB PO ONE (23:00)
[2018-05-15] MEDS ORDERED: hydrOXYzine (VISTARIL) 25 MG CAP PO ONE (23:00)
[2018-05-15] MEDS ORDERED: NS IV 1000 ML 1,000 ML IV SCH (23:13)
[2018-05-15] MEDS ORDERED: ceFAZolin INJECTION 1,000 MG in NS (IVPB) 50 ML IV ONE (23:15)
[2018-05-15 23:25] LABS: BASOPHILS # (AUTO) 0.1 10^3/uL (0.0-0.1); BASOPHILS % (AUTO) 0 % (0-10); EOSINOPHILS # (AUTO) 0.6 10^3/uL (0.0-0.3); EOSINOPHILS % (AUTO) 2 % (0-10); HEMATOCRIT 41 % (35-52); LYMPHOCYTES # (AUTO) 3.7 X 10^3 (1.0-4.0); LYMPHOCYTES % (AUTO) 14 % (12-44); MEAN CORPUSCULAR HEMOGLOBIN 30 PG (25-34); MEAN CORPUSCULAR HGB CONC 34 G/DL (32-36); MEAN CORPUSCULAR VOLUME 88 FL (80-99); MEAN PLATELET VOLUME 9.4 FL (7.4-10.4); MONOCYTES # (AUTO) 2.3 X 10^3 (0.0-1.0); MONOCYTES % (AUTO) 9 % (0-12); NEUTROPHILS # (AUTO) 19.8 X 10^3 (1.8-7.8); NEUTROPHILS % (AUTO) 75 % (42-75); PLATELET COUNT 512 10^3/uL (130-400); RED BLOOD COUNT 4.71 10^6/uL (4.35-5.85); RED CELL DISTRIBUTION WIDTH 14.7 % (10.0-14.5); WHITE BLOOD COUNT 26.5 10^3/uL (4.3-11.0)
[2018-05-15 23:36] LABS: INR 1.9 (0.8-1.4); PROTHROMBIN TIME PATIENT 22.2 SEC (12.2-14.7)
[2018-05-15 23:44] LABS: BILIRUBIN,URINE NEGATIVE (NEGATIVE); CLARITY,URINE SLIGHTLY CLOUDY; COLOR,URINE YELLOW; GLUCOSE, URINE (UA) NEGATIVE (NEGATIVE); KETONES,URINE NEGATIVE (NEGATIVE); LEUKOCYTE ESTERASE ,URINE 3+ (NEGATIVE); NITRITE,URINE NEGATIVE (NEGATIVE); PH,URINE 5 (5-9); PROTEIN,URINE 1+ (NEGATIVE); UROBILINOGEN,URINE NORMAL (NORMAL)
[2018-05-15 23:45] LABS: ALANINE AMINOTRANSFERASE 11 U/L (0-55); ALBUMIN 4.2 GM/DL (3.2-4.5); ALKALINE PHOSPHATASE 76 U/L (40-136); BILIRUBIN,TOTAL 0.2 MG/DL (0.1-1.0); BUN/CREATININE RATIO 15; CALCIUM 9.3 MG/DL (8.5-10.1); CARBON DIOXIDE 21 MMOL/L (21-32); CHLORIDE 105 MMOL/L (98-107); CREATININE SERUM 0.75 MG/DL (0.60-1.30); GFR ESTIMATED > 60; GLUCOSE 122 MG/DL (70-105); POTASSIUM 3.5 MMOL/L (3.6-5.0); SODIUM 140 MMOL/L (135-145); TOTAL PROTEIN 7.2 GM/DL (6.4-8.2)
[2018-05-15 23:54] LABS: BACTERIA,URINE MODERATE /HPF; WBC,URINE 50-100 /HPF
[2018-05-15 23:55] LABS: BAND NEUTROPHILS 2 %; EOSINOPHILS % (MANUAL) 2 %; LYMPHOCYTES % (MANUAL) 13 %; MONOCYTES % (MANUAL) 6 %; NEUTROPHILS % (MANUAL) 77 %; RBC MORPH NORMAL
--- OUTSIDE RECORDS SUMMARY | 2018-05-16 00:34 | XMS REPORT | Continuity of Care Document ---
Author Author [facility] Organization [facility] Address Unknown Phone Unavailable Allergies [...] Status Pt. Type Provider Facility Loc./Unit Complaint [id number] 01/05/2015 09:04:00 01/05/2015 23:59:00 DIS Outpatient Guarantor/person LAB LAB WORK [id number] 01/06/2015 03:48:33 ACT Document Registration [id number] 05/05/2018 12:20:00 05/05/2018 23:59:59 [facility] Outpatient JAREK BOWLES [facility], [place] [id number] 03/10/2018 12:20:00 Document Registration [id number] 01/14/2018 10:00:00 Document Registration
--- NOTE | 2018-05-16 00:53 | NUR ---
LAURA ANNE admitted to room 410-1, with an admitting diagnosis of CELLULITIS VULVA, SEPSIS , on 05/16/18 from ED via , accompanied by ED STAFF.LAURA ANNE introduced to surroundings, call light, bed controls, phone, TV, temperature control, lights, meal times, smoking policy, visitor policy, side rail policy, bathrooms and showers. Patient Rights given to patient in the handbook.LAURA ANNE verbalizes understanding that [facility] is not responsible for the loss or damage to any personal effects or valuables that are kept in the patients posession during their hospitalization.
[2018-05-16 01:08] VITALS: BP 122/75
[2018-05-16] MEDS ORDERED: warFARin 7.5 MG (COUMADIN) TAB PO ONE (01:15)
[2018-05-16] MEDS ORDERED: HYDROcodone/APAP 5 MG/325 MG (LORTAB) TAB PO PRN (01:15)
[2018-05-16] MEDS ORDERED: NS IV SCH ×2 (01:15→06:00)
[2018-05-16] MEDS ORDERED: ACETAMINOPHEN 325 MG TABLET PO PRN ×2 (01:15→01:30)
[2018-05-16] MEDS ORDERED: CEFAZOLIN IV SCH ×2 (01:15→06:00)
[2018-05-16] MEDS ORDERED: 1/2 NS W/KCL 20 MEQ/L 1,000 ML IV ONE (02:14)
[2018-05-16 04:00] VITALS: BP 123/77
[2018-05-16 06:14] LABS: BASOPHILS % (AUTO) 0 % (0-10); EOSINOPHILS # (AUTO) 0.7 10^3/uL (0.0-0.3); EOSINOPHILS % (AUTO) 4 % (0-10); HEMATOCRIT 40 % (35-52); HEMOGLOBIN 13.4 G/DL (11.5-16.0); LYMPHOCYTES # (AUTO) 4.3 X 10^3 (1.0-4.0); LYMPHOCYTES % (AUTO) 23 % (12-44); MEAN CORPUSCULAR HEMOGLOBIN 30 PG (25-34); MEAN CORPUSCULAR HGB CONC 34 G/DL (32-36); MEAN CORPUSCULAR VOLUME 88 FL (80-99); MEAN PLATELET VOLUME 9.5 FL (7.4-10.4); MONOCYTES # (AUTO) 1.4 X 10^3 (0.0-1.0); MONOCYTES % (AUTO) 8 % (0-12); NEUTROPHILS # (AUTO) 12.1 X 10^3 (1.8-7.8); NEUTROPHILS % (AUTO) 65 % (42-75); PLATELET COUNT 554 10^3/uL (130-400); RED BLOOD COUNT 4.53 10^6/uL (4.35-5.85); RED CELL DISTRIBUTION WIDTH 14.9 % (10.0-14.5); WHITE BLOOD COUNT 18.6 10^3/uL (4.3-11.0)
[2018-05-16 08:01] VITALS: BP 126/72
[2018-05-16] MEDS: LORATADINE (CLARITIN) 10 MG TAB PO SCH (09:49)
[2018-05-16] MEDS: 1/2 NS W/KCL 20 MEQ/L 1,000 ML IV SCH ×2 (09:49→17:53)
[2018-05-16] MEDS: hydrOXYzine (VISTARIL) 25 MG CAP PO PRN ×2 (09:49→20:18)
--- NOTE | 2018-05-16 10:13 | Consultation ---
History of Present Illness History of Present Illness Patient Consulted On(luke/time) 05/16/18 10:07 Date Seen by Provider: May 16, 2018 Time Seen by Provider: 10:00 Reason for Visit: Vulvar cellulitis History of Present Illness This 52 yo female was admitted from ER for vulvar cellulitis. She reports itching and discomfort for the past couple of weeks trying OTC remedies without any improvement. SHe reports vast improvement in her symptoms since last night and starting on the Ancef. NO other complaints voiced. Not sexually active in 7 years. No vaginal bleeding noted. Allergies and Home Medications Allergies Coded Allergies: meperidine (Verified Allergy, Unknown, 05/15/18) Patient Home Medication List Home Medication List Reviewed: Yes Past Sgvdabp-Hhxzol-Zzuguk Hx Patient Social History Alcohol Use: Denies Use Recreational Drug Use: No Smoking Status: Never a Smoker Type Used: Cigarettes 2nd Hand Smoke Exposure: Yes Recent Foreign Travel: No Contact w/Someone Who Travel: No Recent Infectious Disease Expo: No Recent Hopitalizations: No Physical Abuse: No Sexual Abuse: No Immunizations Up To Date Date of Influenza Vaccine: Feb 16, 2018 Seasonal Allergies Seasonal Allergies: No Past Medical History Surgeries: Yes (SPLEENECTOMY, HERNIAX2, ARTERIAL STENT) CABG, Hysterectomy Respiratory: No Cardiac: Yes Genitourinary: No Gastrointestinal: No Musculoskeletal: No Endocrine: No HEENT: No Cancer: No Psychosocial: No Integumentary: No Blood Disorders: No Review of Systems-General Constitutional: see HPI EENTM: see HPI Respiratory: see HPI Cardiovascular: see HPI Gastrointestinal: see HPI Genitourinary: see HPI Musculoskeletal: see HPI Skin: see HPI Psychiatric/Neurological: See HPI All Other Systems Reviewed Negative Unless Noted: Yes Physical Exam-General Problems Physical Exam Vital Signs Vital Signs - First Documented 05/15/18 22:33 Temp 96.9 Pulse 98 Resp 20 B/P (MAP) 125/79 (94) Pulse Ox 98 O2 Delivery Room Air Capillary Refill : Less Than 3 Seconds General Appearance: WD/WN, no apparent distress HEENT: PERRL/EOMI Neck: normal inspection Respiratory: no respiratory distress Cardiovascular: regular rate, rhythm Genital/Rectal: other (erythema noted on the mons pubis with some mild edema surounding, patchyness approx 2-3 cm wide and 1 cm cephalad to caudadid. No induration or palpable mass.) Back: no CVA tenderness, no vertebral tenderness Extremities: normal range of motion Neurologic/Psychiatric: housekeeper cleaning cooking II-XII nml as tested, oriented x 3 Skin: normal color Lymphatic: no adenopathy Assessment/Plan Assessment/Plan Admission Diagnosis/Plan Diagnosis: 52 yo female with vulvar cellulitis P: Continue IV Ancef and convert to Keflex 500 qid tomorrow Keep on this regimen for 2 weeks Development Technician follow up in 2 weeks to re-evaluate this area, patient also due for pap and Well woman exam RTC if any worsening symptoms, discussed with patient hygiene precautions and identifying abscess formation. Admission Status: Observation Clinical Quality Measures DVT/VTE Risk/Contraindication: Risk Factor Score Per Nursin RFS Level Per Nursing on Admit: 1=Low/No VTE PPX LEELEE GUIDRY DO May 16, 2018 10:13
--- NOTE | 2018-05-16 10:15 | Discharge Inst-Women's Service ---
Discharge Inst-Women's Serv Depart Medication/Instructions Instructions Follow up with E Learning Coordinator or Dr. Guidry in 2 weeks for re-eval of this area as well as Well Woman Exam Final Diagnosis Vulvar cellulitis Consults/Follow Up Additional Follow Up: Yes Orders/Referrals Dr. Guidry or E Learning Coordinator of her choice in 2-3 weeks Activity Activity: Activity as Tolerated LEELEE GUIDRY DO May 16, 2018 10:15
[2018-05-16] MEDS ORDERED: CEPH250C PO (10:16)
[2018-05-16 11:46] VITALS: BP 132/68
--- NOTE | 2018-05-16 11:53 | History & Physical-Hospitalist ---
History of Present Illness HPI/Chief Complaint The patient is a 52-year-old white female who presented to the emergency room last night with a chief complaint of burning in her genital area for about one week. She had tried multiple qndj-nzl-gndeyot medications without improvement. She then noted some increasing discomfort and swelling and redness and came to the emergency room. Upon their exam they felt that she was developing a cellulitis in the vulva and recommended admission for IV antibiotics. The patient is diabetic and takes only metformin. She does not report previous history of candidiasis. She has a past history of blood vessel disease and a stenting. She takes Coumadin for peripheral artery disease. She smokes. Date Seen 05/16/18 Time Seen by a Provider: 11:48 Attending Physician Alvaro Conteh MD PCP No,Local Physician Referring Physician Date of Admission May 16, 2018 at 00:15 Home Medications & Allergies Home Medications Reviewed patient Home Medication Reconciliation performed by pharmacy medication reconciliations molding technician and/or nursing. Patients Allergies have been reviewed. Allergies Allergies Coded Allergies meperidine (Verified Allergy, Unknown, 05/15/18) Past Tlonmfq-Nwyfnn-Wqdgyv Hx Past Med/Social Hx: Reviewed Nursing Past Med/Soc Hx Patient Social History Alcohol Use: Denies Use Recreational Drug Use: No Smoking Status: Never a Smoker Type Used: Cigarettes 2nd Hand Smoke Exposure: Yes Physical Abuse Screen: No Sexual Abuse: No Recent Foreign Travel: No Contact w/other who traveled: No Recent Hopitalizations: No Recent Infectious Disease Expo: No Immunizations Up To Date Date of Influenza Vaccine: Feb 16, 2018 Seasonal Allergies Seasonal Allergies: No Past Medical History Surgeries: CABG, Hysterectomy History of Blood Disorders: No Family History Heart Disease Review of Systems Constitutional: see HPI EENTM: no symptoms reported Respiratory: no symptoms reported Cardiovascular: no symptoms reported Gastrointestinal: no symptoms reported Genitourinary: see HPI Musculoskeletal: no symptoms reported Skin: no symptoms reported Psychiatric/Neurological: No Symptoms Reported Physical Exam Physical Exam Vital Signs Vital Signs - First Documented 05/15/18 22:33 Temp 96.9 Pulse 98 Resp 20 B/P (MAP) 125/79 (94) Pulse Ox 98 O2 Delivery Room Air Capillary Refill : Less Than 3 Seconds Height, Weight, BMI Height: 5'0.00" Weight: 138lbs. 4.0oz. 62.688004vm; 27.0 BMI Method:Stated General Appearance: No Apparent Distress, WD/WN Eyes: Bilateral Eye Normal Inspection HEENT: Normal ENT Inspection Neck: Normal Inspection Respiratory: Chest Non Tender, Lungs Clear, Normal Breath Sounds, No Accessory Muscle Use, No Respiratory Distress Cardiovascular: Regular Rate, Rhythm, No Edema, No Gallop, No JVD, No Murmur, Normal Peripheral Pulses Gastrointestinal: Normal Bowel Sounds, No Organomegaly, No Pulsatile Mass, Non Tender, Soft Genital/Rectal: Other (see Dr. GUIDRY's exam) Back: Normal Inspection Extremity: Normal Capillary Refill, Normal Inspection, Normal Range of Motion, Non Tender, No Calf Tenderness, No Pedal Edema Skin: Normal Color Lymphatic: No Adenopathy Results Results/Procedures Labs Laboratory Tests 05/15/18 23:15 05/16/18 05:55 Patient resulted labs reviewed. Assessment/Plan Admission Diagnosis Vulvar cellulitis. 2.history of peripheral vascular disease. 3.diabetes, non- insulin requiring. 4.tobaccoism Admission Status: Observation Assessment and Plan IV antibiotics. Add Diflucan. Encourage smoking cessation. Clinical Quality Measures DVT/VTE Risk/Contraindication: Risk Factor Score Per Nursin RFS Level Per Nursing on Admit: 1=Low/No VTE PPX ALVARO CONTEH MD May 16, 2018 11:53
--- NOTE | 2018-05-16 13:23 | NUR ---
Joann in Pharmacy called this RN to inform me that Diflucan has severe interactions with Warfarin and told this Rn that order needs to be clarified. Will call Dr. Buchanan to clarify order.
--- NOTE | 2018-05-16 13:24 | NUR ---
Called Dr. Buchanan to notify him that pharmacy states IV Diflucan has severe interactions with warfarin. Dr. yoo to switch Nystatin cream TID. Will carry out orders and continue to monitor.
[2018-05-16] MEDS: NYSTATIN CREAM (MYCOSTATIN) 30 GM TUBE TP SCH ×2 (14:02→20:18)
[2018-05-16] MEDS: NS IV SCH ×2 (15:02→21:54)
[2018-05-16] MEDS: CEFAZOLIN IV SCH ×2 (15:02→21:54)
[2018-05-16 16:00] VITALS: BP 118/57
[2018-05-16] MEDS ORDERED: warFARin 5 MG (COUMADIN) TAB PO SCH (18:00)
[2018-05-16 20:00] VITALS: BP 127/61
[2018-05-17] VITALS: BP 121/58
[2018-05-17] MEDS: 1/2 NS W/KCL 20 MEQ/L 1,000 ML IV SCH ×2 (01:13→08:17)
[2018-05-17 04:37] LABS: BASOPHILS % (AUTO) 0 % (0-10); EOSINOPHILS % (AUTO) 8 % (0-10); HEMATOCRIT 40 % (35-52); HEMOGLOBIN 13.4 G/DL (11.5-16.0); LYMPHOCYTES # (AUTO) 5.3 X 10^3 (1.0-4.0); LYMPHOCYTES % (AUTO) 42 % (12-44); MEAN CORPUSCULAR HEMOGLOBIN 29 PG (25-34); MEAN CORPUSCULAR HGB CONC 33 G/DL (32-36); MEAN CORPUSCULAR VOLUME 88 FL (80-99); MEAN PLATELET VOLUME 9.7 FL (7.4-10.4); MONOCYTES # (AUTO) 1.3 X 10^3 (0.0-1.0); MONOCYTES % (AUTO) 11 % (0-12); NEUTROPHILS # (AUTO) 4.9 X 10^3 (1.8-7.8); NEUTROPHILS % (AUTO) 39 % (42-75); PLATELET COUNT 516 10^3/uL (130-400); RED BLOOD COUNT 4.59 10^6/uL (4.35-5.85); RED CELL DISTRIBUTION WIDTH 14.8 % (10.0-14.5); WHITE BLOOD COUNT 12.5 10^3/uL (4.3-11.0)
[2018-05-17] MEDS: NS IV SCH (05:57)
[2018-05-17] MEDS: CEFAZOLIN IV SCH (05:57)
[2018-05-17] MEDS: hydrOXYzine (VISTARIL) 25 MG CAP PO PRN (06:21)
[2018-05-17] MEDS: NYSTATIN CREAM (MYCOSTATIN) 30 GM TUBE TP SCH (08:14)
[2018-05-17] MEDS: LORATADINE (CLARITIN) 10 MG TAB PO SCH (08:14)
[2018-05-17 08:32] VITALS: BP 114/55
[2018-05-17] MEDS ORDERED: CEPHALEXIN 250 MG (KEFLEX) CAP PO SCH (09:00)
[2018-05-17] MEDS ORDERED: fluCOnazole (DIFLUCAN) 100 MG TAB PO SCH (09:00)
--- NOTE | 2018-05-17 11:57 | Progress Note-Hospitalist ---
Progress Note Progress Notes/Assess & Plan Date Seen 05/17/18 Time Seen by Provider: 11:30 Assessment & Plan The patient reports that she is much more comfortable today. It is noted that her white count has fallen from 26668-66,[address] over her stay. Per Dr. GUIDRY's consultation and recommendations she is now eligible for discharge. She finds this to be quite appealing. Physical exam: She is bright and alert today. Lungs are clear to auscultation. CV is regular without murmur. Her abdomen is examined. It is noted that there is a pink skin color about one third of the way from pubis to umbilicus. This is not tender or warm to touch. There is erythema over the vulva with out obvious swelling at this time. Extremities show no pedal edema. Impression: Cellulitis now improving. 2.diabetes. Plan: Discharge. SEE discharge sequence for medications and routines. Focused Exam Lactate Level 05/15/18 23:25: Lactic Acid Level 1.47 ZBIGNIEW CONTEH MD May 17, 2018 11:57
[2018-05-17 12:18] VITALS: BP 122/57
[2018-05-17 12:58] VITALS: BP 122/57
--- NOTE | 2018-05-17 12:58 | NUR ---
LAURA ANNE demonstrates understanding of discharge instructions and accurately returns instructions upon questioning. Copy of Post-Discharge Instructions and Medication Discharge Instructions given to PT. LAURA ANNE is able to manage continuing needs after discharge. Patients belongings returned to PT. Patient discharged from [facility] on 05/17/18 at 1258 . LAURA ANNE left floor via WHEELCHAIR, accompanied by STAFF.
--- NOTE | 2018-05-20 11:51 | Physician Query Clarification ---
PQ-Conflicting Diagnosis Admission/Discharge Admission Date: May 16, 2018 at 00:15 Discharge Date: May 17, 2018 at 12:58 The medical record reflects the following clinical scenario: History/Risk Factors: vulval cellulitis Clinical Findings: urine culture no growth, PH 1.015, urine bacteria moderate, urine mucous moderate, urine esterase 3+ Treatment: IV Cefazolin Question: Do you agree with the impression of the UTI per Dr. Quiroga. Please document a response below. PHYSICIAN RESPONSE Do you agree w/Consulting Dx?: No Explanation of clincal finding Believe clinical findings in UA more consistent with Debbi/bacterial cellulitis and not urinary tract infection In responding to this query, please exercise your independent professional judgment. The purpose of this communication is to more accurately reflect the complexity of your patients condition. The fact that a question is asked does not imply that any particular answer is desired or expected. Thank you for your timely response to this clarification. Requestors name: Ginny THIS PHYSICIAN QUERY FORM IS A PERMANENT PART OF THE MEDICAL RECORD GINNY MANN May 20, 2018 11:51 ZBIGNIEW CONTEH MD May 30, 2018 08:22
--- NOTE | 2018-05-20 11:53 | Physician Query Clarification ---
PQ-Conflicting Diagnosis Admission/Discharge Admission Date: May 16, 2018 at 00:15 Discharge Date: May 17, 2018 at 12:58 The medical record reflects the following clinical scenario: History/Risk Factors: vulval cellulitis Clinical Findings: T96.9, P98, R20, BP 125/79, WBC 26.5, Lactic acid 1.47 Treatment: IV Cefazolin Question: Do you agree with the impression of the Sepsis per Dr. Quiroga. Please document a response below. PHYSICIAN RESPONSE Do you agree w/Consulting Dx?: Yes Explanation of clincal finding With pulse and white count she qualifies for Sirs. There is a defined area of infection therefore sepsis In responding to this query, please exercise your independent professional judgment. The purpose of this communication is to more accurately reflect the complexity of your patients condition. The fact that a question is asked does not imply that any particular answer is desired or expected. Thank you for your timely response to this clarification. Requestors name: Kimberley THIS PHYSICIAN QUERY FORM IS A PERMANENT PART OF THE MEDICAL RECORD KIMBERLEY MANN May 20, 2018 11:53 ZBIGNIEW CONTEH MD May 30, 2018 08:24
--- NOTE | 2018-05-22 13:52 | Physician Query-Final Dx ---
ZAMZAM PALACIOS 05/22/18 1352: Final Diagnosis Give Final Diagnosis Please give Final Diagnosis ZBIGNIEW CONTEH MD 05/30/18 0825: Final Diagnosis Give Final Diagnosis Diabetes. 2.vulvar cellulitis/candidiasis ZAMZAM PALACIOS May 22, 2018 13:52 ZBIGNIEW CONTEH MD May 30, 2018 08:25
[2018-05-23] MEDS ORDERED: WARF1TAB PO (20:11)
[2018-05-23] MEDS ORDERED: ATEN25TA PO (20:11)
[2018-05-23] MEDS ORDERED: CYCL5TAB PO (20:11)
[2018-05-23] MEDS ORDERED: METF-397 PO (20:11)
[2018-05-23] MEDS ORDERED: FERR236T3 PO (20:11)
[2018-05-23] MEDS ORDERED: CETI10CA PO (20:11)
[2018-05-23] MEDS ORDERED: SIMV5TAB6 PO (20:11)
[2018-05-23] MEDS ORDERED: CLOP75TA69 PO (20:11)
[2018-05-24] MEDS ORDERED: TERC45CR4 VG (11:41)
[2018-05-24] MEDS ORDERED: TR1O15 TP (11:41)
[2018-05-24] MEDS ORDERED: SIMV20TA3 PO (14:49)
== END 2018-05-17 12:58 | disposition home or self-care (01) | DRG 872 ==
LOC: EDUNIT# 22:18 → ER 22:20 → 4TH 05-16 00:15
PROVIDERS: ADMIT Internal Medicine; ATTEND Internal Medicine
DX: A41.9 Sepsis, unspecified organism (principal); B37.3 Candidiasis of vulva and vagina; E11.51 Type 2 diabetes mellitus with diabetic peripheral angiopathy without gangrene; I73.9 Peripheral vascular disease, unspecified; F17.210 Nicotine dependence, cigarettes, uncomplicated; Z79.84 Long term (current) use of oral hypoglycemic drugs; Z95.820 Peripheral vascular angioplasty status with implants and grafts; Z95.1 Presence of aortocoronary bypass graft
CPT/HCPCS: 36415; 80053; 81000; 83605; 85007; 85025; 85027; 85610; 85730; 87040; 87088; 87210; 87491; 87591; 96361; 96365

== ENCOUNTER 2018-05-23 19:48 | Inpatient (IN) | payer SELFPAY, OTHER | END 2018-05-25 16:08 | disposition home or self-care (01) | LOC: ER 19:48 → 4TH 20:48 ==

== ENCOUNTER 2018-08-10 12:59 | Outpatient (RCR) | payer SELFPAY ==
[~2018-08-10 12:59] MED LIST: ATEN25TA PO; CEPH250C PO; CETI10CA PO; CLOP75TA69 PO; CYCL5TAB PO; FERR236T3 PO; METF-397 PO; SIMV20TA3 PO; SIMV5TAB22 PO; TERC45CR4 VG; TR1O15 TP; WARF1TAB PO
[2018-08-10 13:24] LABS: INR 2.1 (0.8-1.4); PROTHROMBIN TIME PATIENT 24.3 SEC (12.2-14.7)
== END 2018-11-08 | disposition home or self-care (01) ==
LOC: LAB 12:59
PROVIDERS: ATTEND Internal Medicine Cardiovascular Disease
DX: Z51.81 Encounter for therapeutic drug level monitoring (principal); Z79.01 Long term (current) use of anticoagulants
CPT/HCPCS: 36415; 85610

== ENCOUNTER → 2018-11-23 | Outpatient (CLI) | payer SELFPAY ==
[2018-11-23 13:01] LABS: INR 2.1 (0.8-1.4); PROTHROMBIN TIME PATIENT 24.6 SEC (12.2-14.7)
== END ==
LOC: LAB 12:38
PROVIDERS: ATTEND Internal Medicine Cardiovascular Disease
DX: Z79.01 Long term (current) use of anticoagulants (principal)
CPT/HCPCS: 36415; 85610

== ENCOUNTER 2018-12-02 15:30 | Emergency (ER) | payer SELFPAY | END 2018-12-02 17:30 | disposition home or self-care (01) | LOC: ER 15:30 ==

== ENCOUNTER → 2019-01-29 | Outpatient (CLI) | payer OTHER ==
--- NOTE | 2019-01-29 16:56 | Diagnostic Imaging Report ---
CLINICAL INDICATION: Patient with carotid stenosis. COMPARISON: None. EXAM: Real-time carotid Doppler duplex imaging is performed bilaterally. Peak systolic velocity, ICA/CCA peak systolic ratio, spectral analysis, and vascular morphology are studied. FINDINGS: ARTERY VELOCITY Right Left CCA 0.80 m/s 0.65 m/s ICA 0.84 m/s 0.92 m/s ECA 1.27 m/s 1.07 m/s ICA/CCA 1.05 1.41 VERT.ART Antegrade Antegrade There is mild bilateral carotid artery atherosclerotic disease. There is soft heterogeneous plaque involving the proximal left ICA bulb. IMPRESSION: Bilateral carotid artery atherosclerotic disease with no grayscale or Doppler evidence of significant vascular stenosis. Dictated by: Dictated on workstation # [id number]
== END ==
LOC: RAD 14:54
PROVIDERS: ATTEND Internal Medicine Cardiovascular Disease
DX: I65.23 Occlusion and stenosis of bilateral carotid arteries (principal)
CPT/HCPCS: 93880